=== PATIENT | male | born 1980 | race Two or more races ===

== ENCOUNTER 2024-12-10 19:15 | Emergency (ER) | payer MEDICAID, SELFPAY ==
[2024-12-10 19:16] VITALS: BMI 43.0
[2024-12-10 19:34] VITALS: BP 153/97; PULSE 83; RESP 18; TEMP 36.4; O2SAT 98
--- NOTE | 2024-12-10 19:39 | PD.EDRME ---
Rapid Medical Screening Exam RME Arrival date/time: 12/10/24 19:15 Chief Complaint: Back Pain/Injury Time Seen by Provider: 12/10/24 19:22 Vital signs: Vital Signs Temperature 97.6 F 12/10/24 19:34 Pulse Rate 83 12/10/24 19:34 Respiratory Rate 18 12/10/24 19:34 Blood Pressure 153/97 H 12/10/24 19:34 Pulse Oximetry (%) 98 12/10/24 19:34 Oxygen Delivery Method Room Air 12/10/24 19:34 Vital signs reviewed by provider: Yes RME Narrative: 44-year-old male presents with a complaint of low back pain with worsening numbness and tingling of his bilateral lower extremities. He states yesterday he was weed whacking and turned to the right side he was seen by his primary care provider today and sent here to receive an MRI, as it would take 1 to 2 weeks through the referral system. He denies any loss of bladder or bowel control. He has had previous numbness and tingling secondary to a previous back injury and subsequent surgery in 2006.
--- NOTE | 2024-12-10 19:42 | XR_ITS ---
Examination: CT lumbar spine, without contrast. 2-D sagittal reconstructions. 2-D coronal reconstructions. 3-D reconstructions. Date and time of exam:December 10, 2024 2115 hrs. Indications: Low back pain beginning in the legs numbness in the legs today CTDI: vol (mGy):47.6 DLP: (mGycm):1272 Technique: Multiple 1.25 mm axial sections of the lumbar spine without intravenous contrast have been obtained. 2-D sagittal and coronal reconstructions have been obtained. 3-D reconstructions have been obtained. Low dose protocols were performed. One or more of the following dose reduction techniques were used; automated exposure control, adjustment of the mA and/or KV according to patient size, use of iterative reconstruction technique. Findings: Prominent osteopenia No acute lumbar fracture Advanced disc narrowing L2-L3 Laminectomies L2-L3 Lumbar pedicles laminated transverse processes appear intact No spondylolisthesis L5-S1 5 mm central lumbar disc bulge extending to the foraminal regions with moderate left mild right L5 ganglionic compression L4-L5 5 mm central lumbar disc bulge extending to the left foraminal region with moderate left L4 ganglionic compression L3-L4 4 mm central lumbar disc bulge combined with facet arthropathy with moderate bilateral L3 ganglionic compression, moderate overall spinal stenosis L2-L3 3 mm central lumbar disc bulge L1-L2 4 mm right paracentral disc bulge Impression: L5-S1 5 mm central lumbar disc bulge with moderate left mild right L5 ganglionic compression L4-L5 5 mm central lumbar disc bulge with moderate left L4 ganglionic compression L3-L4 4 mm central lumbar disc bulge with moderate bilateral L3 ganglionic compression L2-L3 3 mm central lumbar disc bulge L1-4 mm right paracentral lumbar disc bulge Consider elective MRI lumbar spine follow-up to best assess full extent of acquired spinal soft tissues stenosis
[2024-12-10] MEDS: KETOROLAC INJ 60 MG/2 ML VIAL 30 MG IM (20:04)
[2024-12-10 21:41] LABS: Basophils # (Auto) 0.1 Thou/mm3 (0.0-0.2); Basophils % (Auto) 1 % (0-2.5); Eosinophils # (Auto) 0.3 Thou/mm3 (0.0-0.5); Eosinophils % (Auto) 3 % (0-10); Hematocrit 44.5 % (41.0-53.0); Hemoglobin 15.5 g/dL (13.5-16.0); Immature Granulocytes % (Auto) 0 % (0-0); Immature Granulocytes Auto 0.02 Thou/mm3 (0.00-0.00); Lymphocytes # (Auto) 2.2 Thou/mm3 (1.0-4.8); Lymphocytes % (Auto) 26 % (10-50); Mean Corpuscular HGB Conc 34.8 g/dl (31.0-37.0); Mean Corpuscular Volume 86 fL (80-100); Monocytes # (Auto) 0.8 Thou/mm3 (0.0-0.8); Monocytes % (Auto) 9 % (0-12); Neutrophils # (Auto) 5.2 Thou/mm3 (1.8-7.7); Neutrophils % (Auto) 61 % (37-80); Nucleated Red Blood Cell % 0 /100 WBC (0); Platelet Count 280 Thou/mm3 (140-440); RDW Standard Deviation 38.7 fL (35.1-43.9); Red Blood Count 5.17 Miln/mm3 (4.50-5.90); White Blood Count 8.5 Thou/mm3 (3.8-10.6)
--- NOTE | 2024-12-10 21:48 | PC.NURSE ---
PATIENT SIGNED AMA WILL SEE PCP TOMORROW FOR RESULTS. PAIN LEVEL TO HIGH WHILE WAITING DID NOT WANT MORE PAIN MEDS HERE. PROVIDER NOTIFIED.
[2024-12-10 21:55] LABS: Partial Thromboplastin Time 27.6 Seconds (22.0-36.0); Prothrombin Time 10.9 Seconds (9.0-12.2)
[2024-12-10 22:04] LABS: Alanine Aminotransferase 33 U/L (10-49); Albumin, Serum 4.7 gm/dL (3.5-5.0); Albumin/Globulin Ratio 1.7 (1.2-2.2); Alkaline Phosphatase 77 U/L (46-116); Anion Gap 9 (7-16); Aspartate Amino Transferase 26 U/L (0-34); BUN/Creatinine Ratio 11 Ratio (12-20); Bilirubin,Total 0.5 mg/dL (0.3-1.2); Blood Urea Nitrogen 12 mg/dL (9-23); Calcium 9.5 mg/dL (8.3-10.6); Calcium (Corrected) 9.5 mg/dL (8.5-10.1); Carbon Dioxide 27.9 mMol/L (20.0-31.0); Chloride 107 mMol/L (98-107); Creatinine (Component) 1.1 mg/dL (0.6-1.3); Estimated Creatinine Clearance 120.3 mL/min (>60); Globulin 2.7 gm/dL (2.3-3.5); Glucose 93 mg/dL (74-106); Osmolality,Calculated 286 (275-295); Potassium 3.8 mMol/L (3.4-5.1); Sodium 144 mMol/L (136-145); Total Protein 7.4 gm/dL (5.7-8.2); eGFR > 60 See Note
== END 2024-12-10 21:49 | disposition left against medical advice (07) ==
LOC: SERX 20:10
PROVIDERS: Emergency Provider Emergency Medicine; PCP Family Medicine
DX: M54.50 Low back pain, unspecified (principal); Z53.29 Procedure and treatment not carried out because of patient's decision for other reasons; R20.0 Anesthesia of skin; R20.2 Paresthesia of skin
CPT/HCPCS: 36415; 72131; 80053; 81001; 85025; 85610; 85730; 96372; 99281; J1885